=== PATIENT | female | born 1950 | race Caucasian/White ===

== ENCOUNTER 2024-06-25 14:12 | Outpatient (AMB) | payer MEDICARE, SELFPAY ==
--- NOTE | 2024-06-25 14:14 | A.OFFVIS_ITS ---
Vital Signs 06/25/24 14:27 Height 5 ft 2 in Weight 148 lb BMI 27.1 BP 130/62 Blood Pressure Location Lt brachial Position Sitting Respiration 16 Pulse 70 Pulse Source Pulse Oximeter Pulse Oximetry (%) 99 Oxygen Delivery Method Room Air Intake Visit Reasons: Sciatica, right side Intake Note: Patient comes in for initial visit was referred by [facility]. Reports pain 6-7/10. Allergies Antibiotic Allergy (Unknown, Uncoded 06/25/24 14:25) Unknown Cefazolin Sodium Allergy (Unknown, Uncoded 06/25/24 14:25) Unknown Erythromycin Allergy (Unknown, Uncoded 06/25/24 14:25) Unknown Sulfacet-R Allergy (Unknown, Uncoded 06/25/24 14:25) Unknown HPI Comments Details: Sunshine is very pleasant 73 years old female who presents in my office with complains on pain in the lower back. She relates her pain to to surgery she received in the past for her back. She reports that she was much better before the surgeries. She reports that she could walk before surgeries and be active now she is using cane for ambulation and it is difficult for her to walk. She can not flex herself forward. She has also bilateral neuropathic pain in bilateral feet in shape of pins needles and burning sensation. She reports that her pain is 6 to 7/10. Her pain in the back is 8/10. She can not sleep normally because of her pain she can not do activities of daily living, she can take care of herself but she can not function normally. He is retired nurse. She reports that movements aggravate her pain. Heat and cold application make her pain better as well as oral medications. She is currently on tramadol. In terms of tissue damage he reports her pain is stabbing, sharp, tingling, hurting, aching, exhausting sensation. She had multiple studies of the MRI of her lumbar spine which last was done in March of 2024. Before surgery and after surgery she had physical therapy she continued physical therapy for 6 weeks after surgery and she continues to do home exercise program every day. She tried magnesium, premeasured 6, topical creams to help her pain. She before her surgery received several epidural steroid injections which were not helpful for her pain. She had 2 surgeries on her lower back 1 in 04/05/2024 with decompression a another with laminectomy of 2022 which resulted in L3-L4 L5 and S1 fusion. She also had total hip replacement. Her past medical history is positive for hypertension depression history of heart murmur iron deficiency anemia, GED ataxia, interstitial cystitis irritable bowel syndrome and history of arthritis. She is retired individual she denies smoking cigarettes she has stopped 20 years ago until then she was heavy smoker. She denies drinking alcohol does not drink coffee or caffeinated beverages she denies recreational drugs. Review of Systems ENT Reports Normal hearing present Card Reports no additional complaints Resp Reports no additional complaints GI Reports as per HPI Reports as per HPI Musc Reports as per HPI Neuro Reports as per HPI, Reports Normal hearing present, Denies Abnormal speech present and Denies Sensory deficit (Neuro) Psych Reports as per HPI Endo Reports no additional complaints Physical Exam Const General: no acute distress Nutritional Appearance: average body habitus and well nourished Orientation/consciousness: patient oriented x3 Limitations: physical limitations, ambulation with cane and ambulation with walker Eyes General: appearance normal, both eyes and all related structures Pupils: Equal, round and reactive pupils present EOM: EOMs intact bilaterally Neck Neck: Yes full ROM Chest Chest palpation & inspection: normal inspection of the chest Resp Effort & Inspection: normal respiratory effort, able to speak in complete sentences, normal respiratory pattern, no audible wheezes and no cough Cardio Jugular venous distension: no JVD GI Inspection: Yes normal to inspection Back/Spine/Pelvis Other: Unable to stand on bilateral tiptoes. Exhibits pes equinus on the right. States that pes equinus was even before the surgery but after surgery became worse. Flexing forward aggravates pain more than flexing backwards. No tenderness on palpation in paraspinal spinal region of the lumbar spine. Severe tenderness on palpation in the projection of right sacroiliac joint. SLR is negative bilaterally. Valsalva maneuver is negative bilaterally. Felipe test is positive on the right, Stinchfield test is positive on the right, pelvic compression test is positive on the right, 14 finger test is positive on the right. Neuro General: patient oriented x3 and gait normal Cranial nerves: Yes CN's II-XII intact bilaterally, Yes Equal, round and reactive pupils present, Yes Normal hearing present and Yes Ability to bilaterally elevate shoulders present Speech: No Abnormal speech present Gait exam (Neuro): Normal gait present Motor exam (neuro): 5/5 motor strength present throughout Sensory Exam: No Sensory deficit (Neuro) Extrem General: No pedal edema Psych Speech and movement: Normal speech and movement present Affect: normal affect Attitude: cooperative Thought process: Normal thought process present Thought content: Normal thought content present Insight: Good insight present (Psych) Judgement: Good judgement present (Psych) Assessment & Plan Assessment & Plan (1) Sacroiliitis: Code(s): M46.1 - Sacroiliitis, not elsewhere classified Category: Medical (2) Chronic right sacroiliac joint pain: Code(s): M53.3 - Sacrococcygeal disorders, not elsewhere classified; G89.29 - Other chronic pain Category: Medical (3) Chronic pain syndrome: Code(s): G89.4 - Chronic pain syndrome Category: Medical (4) Postlaminectomy syndrome: Code(s): M96.1 - Postlaminectomy syndrome, not elsewhere classified Category: Medical (5) Idiopathic polyneuropathy: Code(s): G60.9 - Hereditary and idiopathic neuropathy, unspecified Category: Medical Plan 1. My impression is that this patient has sacroiliitis on the right as a main pain generators. I offered her to come to us for right sacroiliac joint neither diagnostic injection. She agreed to go for the procedure. If diagnostic sacroiliac joint injection will be successful in alleviating her pain we will consider several modalities to help her pain including peripheral nerve stimulation sacroiliac joint fusion or series of SI joint injections. If not significantly improvement after diagnostic sacroiliac joint injection I will request her to bring me the disc with the MRI images of the lumbar spine. 2. As of her peripheral neuropathy I gave her brochure of [facility]. If she would like this modality to treat her peripheral neuropathy I will schedule her for an appointment with psychological evaluation [facility]. I will see this patient on the day of the injection and 1 more time after the injection. Coding Level of Care Code New Pt Level 3 (21311) Diagnoses Sacroiliitis M46.1 Chronic right sacroiliac joint pain M53.3; G89.29 Chronic pain syndrome G89.4 Postlaminectomy syndrome M96.1 Idiopathic polyneuropathy G60.9
[2024-06-25 14:27] VITALS: BP 130/62; PULSE 70; RESP 16; O2SAT 99; BMI 27.1
== END 2024-06-25 14:45 | disposition home or self-care (01) ==
PROVIDERS: PCP Hospitalist; Visit Provider Anesthesiology
DX: M46.1 Sacroiliitis, not elsewhere classified (principal); M53.3 Sacrococcygeal disorders, not elsewhere classified; G89.29 Other chronic pain; G89.4 Chronic pain syndrome; M96.1 Postlaminectomy syndrome, not elsewhere classified; G60.9 Hereditary and idiopathic neuropathy, unspecified
CPT/HCPCS: 99203

== ENCOUNTER → 2024-06-25 14:12 | Outpatient (BNVA) | payer MEDICARE, SELFPAY | PROVIDERS: PCP Hospitalist; Visit Provider Anesthesiology | DX: M46.1 Sacroiliitis, not elsewhere classified (principal); M53.3 Sacrococcygeal disorders, not elsewhere classified; G89.29 Other chronic pain; M96.1 Postlaminectomy syndrome, not elsewhere classified; G60.9 Hereditary and idiopathic neuropathy, unspecified | CPT/HCPCS: 99202 ==

== ENCOUNTER 2024-08-07 06:25 | Outpatient (REF) | payer MEDICARE, SELFPAY | END 2024-08-07 06:26 | disposition home or self-care (01) | LOC: CF 06:25 | PROVIDERS: Visit Provider Anesthesiology | DX: M46.1 Sacroiliitis, not elsewhere classified (principal); M53.3 Sacrococcygeal disorders, not elsewhere classified; G89.29 Other chronic pain; M96.1 Postlaminectomy syndrome, not elsewhere classified; G60.9 Hereditary and idiopathic neuropathy, unspecified | CPT/HCPCS: 27096; J2003; J2795; Q9967 ==

== ENCOUNTER 2024-08-07 13:54 | Outpatient (AMB) | payer MEDICARE, SELFPAY ==
[2024-08-07 14:53] VITALS: BP 116/62; PULSE 73; RESP 14; O2SAT 97; BMI 27.1
--- NOTE | 2024-08-07 14:53 | MHC.OFFVIS ---
Vital Signs 08/07/24 14:53 08/07/24 14:54 Height 5 ft 2 in 5 ft 2 in Weight 148 lb 148 lb BMI 27.1 27.1 BP 116/62 115/62 Blood Pressure Location Lt brachial Lt brachial Position Sitting Sitting Respiration 14 14 Pulse 73 66 Pulse Source Pulse Oximeter Pulse Oximeter Pulse Oximetry (%) 97 96 Oxygen Delivery Method Room Air Room Air Comment pre-op post-op Intake Visit Reasons: RIGHT DIAGNOSTIC SIJ INJECTION Allergies Antibiotic Allergy (Unknown, Uncoded 06/25/24 14:25) Unknown Cefazolin Sodium Allergy (Unknown, Uncoded 06/25/24 14:25) Unknown Erythromycin Allergy (Unknown, Uncoded 06/25/24 14:25) Unknown Sulfacet-R Allergy (Unknown, Uncoded 06/25/24 14:25) Unknown Physical Exam Vital Signs: Last Vital Signs Pulse 66 08/07/24 14:54 Resp 14 08/07/24 14:54 BP 115/62 08/07/24 14:54 Pulse Ox 96 08/07/24 14:54 Oxygen Delivery Method Room Air 08/07/24 14:54 BMI result Body Mass Index 27.1 Assessment & Plan Assessment & Plan (1) Sacroiliitis: Code(s): M46.1 - Sacroiliitis, not elsewhere classified Category: Medical (2) Chronic right sacroiliac joint pain: Code(s): M53.3 - Sacrococcygeal disorders, not elsewhere classified; G89.29 - Other chronic pain Category: Medical (3) Chronic pain syndrome: Code(s): G89.4 - Chronic pain syndrome Category: Medical (4) Postlaminectomy syndrome: Code(s): M96.1 - Postlaminectomy syndrome, not elsewhere classified Category: Medical (5) Idiopathic polyneuropathy: Code(s): G60.9 - Hereditary and idiopathic neuropathy, unspecified Category: Medical Plan: Diagnostic right sacroiliac joint injection Informed consent was explained thoroughly to the patient.? All questions about benefits and risks for the procedure were answered. Patient came to the operating room and was positioned prone on the operating table with the pillow under the pelvis.? The lower back and buttocks of the patient were prepped with ChloraPrep prepped and draped with sterile utility towels.? Sterilely draped C-arm was brought over the operating field and sq picture of patient's pelvis was demonstrated on the screen.? For the right joint tilting C-arm contralateral to the site of the joint the most posterior portion of the joints was superimposed with anterior silhouette of the joint.? Skin was injected in the projection of the joint slightly medial to the location of the joint with 25 gauge 1/2 inch needle using local lidocaine 2% . After that 22 gauge 3 and 1/2 inch needle was driven to the right joint in tunnel vision fashion.? When needle entered the joint capsule injection of the contrast was performed demonstrating intra-articular and minimally periarticular spread of the contrast.? After that 4 cc. of ropivacaine 0.5% was injected into each joint.? Upon completion of the injections the needles were removed and pressure were applied.? Sterile dressing was applied.? Upon completion of the injection patient was taken outside of the operating room to the recovery room where recovered uneventfully. Plan 1. My impression is that this patient has sacroiliitis on the right as a main pain generators. I offered her to come to us for right sacroiliac jointr diagnostic injection. She agreed to go for the procedure. If diagnostic sacroiliac joint injection will be successful in alleviating her pain we will consider several modalities to help her pain including peripheral nerve stimulation sacroiliac joint fusion or series of SI joint injections. If not significantly improvement after diagnostic sacroiliac joint injection I will request her to bring me the disc with the MRI images of the lumbar spine. 2. As of her peripheral neuropathy I gave her brochure of [facility]. If she would like this modality to treat her peripheral neuropathy I will schedule her for an appointment with psychological evaluation [facility]. I will see this patient on the day of the injection and 1 more time after the injection. Orders: Orders FL guidance in treatment room 08/07/24 M46.1 - Sacroiliitis, not elsewhere classified Coding Level of Care Code Procedure Only Diagnoses Sacroiliitis M46.1 Chronic right sacroiliac joint pain M53.3; G89.29 Chronic pain syndrome G89.4 Postlaminectomy syndrome M96.1 Idiopathic polyneuropathy G60.9
[2024-08-07 14:54] VITALS: BP 115/62; PULSE 66; RESP 14; O2SAT 96; BMI 27.1
== END 2024-08-07 14:41 | disposition home or self-care (01) ==
LOC: HO.PMCPRC 13:54
PROVIDERS: PCP Hospitalist; Visit Provider Anesthesiology
DX: M46.1 Sacroiliitis, not elsewhere classified (principal); M53.3 Sacrococcygeal disorders, not elsewhere classified
CPT/HCPCS: 27096